=== PATIENT | female | born 1955 | race Caucasian/White ===

== ENCOUNTER 2022-07-08 22:52 | Emergency (ER) | payer MEDICARE, OTHER, SELFPAY ==
[2022-07-08] VITALS (8 sets, daily range): BP systolic 116–160; BP diastolic 61–78; PULSE 63–65; RESP 12–22; TEMP 36.3; O2SAT 94
--- NOTE | ~2022-07-08 | XR_ITS ---
Portable chest x-ray Comparison: None Clinical History: Syncope Findings: Lungs are clear, without focal consolidation or pleural effusion. Cardiomediastinal silho uette is unremarkable. Bones and soft tissues are unremarkable. Impression: Normal chest. Reviewed, dictated and finalized at location . CONSULTANT Impression: Normal chest.
--- NOTE | ~2022-07-08 | CT_ITS ---
Non-contrast Head CT History: Syncope Technique: Axial non-contrast imaging of the brain was performed. Dose reduction technique was used on this scan by utilizing automated exposure control and iterative reconstruction technique. The dose -length product (DLP) was 605.33 mGy-cm. Findings: There is no evidence of intracranial hemorrhage, mass lesion, or acute infarct. Brain par enchyma appears normal. The ventricles and subarachnoid spaces are normal in size. The calvarium ap pears normal. The visualized paranasal sinuses and mastoid air cells are clear. Impression: No significant abnormality seen. Reviewed, dictated and finalized at location . D IDENTIFICATION SPECIALIST Impression: No significant abnormality seen.
--- NOTE | 2022-07-08 23:00 | ECG_ITS ---
Measurements Intervals [place] Rate: 66 P: 44 OK: 177 QRS: 48 QRSD: 114 T: 94 QT: 472 QTc: 495 Interpretive Statements SINUS RHYTHM INTRAVENTRICULAR CONDUCTION DELAY ST-T WAVE ABNORMALITY IN HIGH LATERAL LEADS- CONSIDER ISCHEMIA BASELINE WANDER- I, II, III, AVR, AVL, AVF PROLONGED QT INTERVAL ABNORMAL ECG NO PREVIOUS ECG AVAILABLE FOR COMPARISON Electronically Signed On 07-09-2022 8:02:11 [employer] by Rk Quintanilla D.O.
--- NOTE | 2022-07-08 23:03 | ED.SYNCOPE ---
HPI - Syncope General Chief Complaint: Syncope Stated Complaint: syncope Time Seen by Provider: 07/08/22 23:00 History of Present Illness HPI narrative: This is a 67-year-old female brought in by EMS after syncopal episode. EMS reports patient was drinking with the family, when she lost consciousness. She denies chest pain or difficulty breathing. Related Data Allergies Allergy/AdvReac Type Severity Reaction Status Date / Time iodine Allergy Unknown Rash Verified 07/08/22 23:06 codeine AdvReac Mild Confusion Verified 07/08/22 23:06 Review of Systems Review of Systems: CONSTITUTIONAL: Denies fever, chills, or sweats. EYES: Denies visual changes, redness, or discharge. ENT: Denies rhinorrhea, congestion, sore throat, or otalgia. CARDIOVASCULAR: Denies chest pain, palpitations, or edema. RESPIRATORY: Denies cough or dyspnea. GASTROINTESTINAL: Denies abdominal pain, nausea, vomiting, or diarrhea. GENITOURINARY: Denies dysuria or hematuria. SKIN: Denies rash or itching. MUSCULOSKELETAL: Denies back pain, joint pain, or myalgia. NEUROLOGIC: Syncope denies headache, numbness, dizziness, or weakness. PSYCHIATRIC: Denies anxiety or depression. [facility] Past Medical History Medical History SK (seborrheic keratosis) Social History Social History (Updated 07/08/22 @ 23:04 by Fuad Hilliard MD) Smoking status: Former smoker Alcohol intake: current Substance use: never Exam Narrative: GENERAL: Well-developed, well-nourished, and in no acute distress. HEAD: Normocephalic, atraumatic. EYES: PERRLA and EOMI. ENT: Nares clear, no rhinorrhea or epistaxis. Mucous membranes moist. Oropharynx without tonsillar hypertrophy exudate or other lesions. NECK: Supple. No adenopathy or masses. No carotid bruits or JVD CHEST: Clear to auscultation. No respiratory distress. No wheezes rales or rhonchi HEART: Regular rate and rhythm. No murmur heard. Normal peripheral pulses. ABDOMEN: Soft, nontender, nondistended, normal active bowel sounds. EXTREMITIES: Normal range of motion. No edema. SKIN: Warm, dry, no rash. NEURO: No focal deficits. Alert and oriented x3. PSYCH: Normal mood and affect. Course Course Emergency Course: 23:00 - EKG not concerning for STEMI though does show an isolated 1 mm elevation in lead III. 00:45 - Repeat EKG is not concerning for new changes. White blood cell count elevated to 11.3. D-dimer 0.63 (age-adjusted is negative). Chemistries demonstrate creatinine elevation to 1.5 (no known baseline). Lactic acid elevated to 4. Troponin negative. Chest x-ray on my review is not concerning for acute cardiopulmonary process. Patient's family members are present at bedside and note patient drank her normal amount of alcohol, though smoked marijuana for the first time this evening. They note during her loss of consciousness, she had rhythmic shaking. They denied head injury. Will obtain a CK. If elevated, will consider seizure. 05:40 - Lactic acid decreased to 2.[address] head negative for acute intracranial process. UA not concerning for urinary tract infection. I suspect the patient's syncope is related to dehydration and illicit substance use. Consulted hospitalist, Dr. Vallejo. Will discharge with primary care and cardiology follow-up. Advised the patient to avoid excess alcohol use and avoid illicit substance use. Discussed return and emergent precautions including signs/symptoms of respiratory distress and ACS. The patient voiced understanding and is comfortable with the plan. All questions answered to her satisfaction. Vital Signs Vital signs: Vital Signs Temperature 97.4 F L 07/08/22 22:56 Pulse Rate 63 07/08/22 22:56 Respiratory Rate 16 07/08/22 22:56 Blood Pressure 160/78 H 07/08/22 22:56 Pulse Oximetry 94 07/08/22 22:56 Oxygen Delivery Room Air 07/08/22 22:56 Temperature 97.4 F L 07/08/22 22:56 Pulse
[2022-07-08] MEDS: SODIUM CHLORIDE 0.9% IV 1,000 ML 999 ML IV CONT (23:29)
[2022-07-08 23:38] LABS: Basophils Absolute Auto 0.1 K/mm3 (0.0-0.1); Basophils Percent Auto 0.5 % (0.2-1.2); Eosinophils Absolute Auto 0.2 K/mm3 (0-0.3); Eosinophils Percent Auto 2.1 % (0-4.4); Hematocrit 38.2 % (37.0-47.0); Hemoglobin 12.7 g/dL (12.0-15.0); Immature Granulocyte Absolute 0.08 K/mm3 (0.00-0.031); Immature Granulocyte Percent A 0.7 % (0-0.5); Lymphocytes Absolute Auto 4.87 K/mm3 (0.9-3.2); Lymphocytes Percent Auto 43.3 % (18.3-44.2); Mean Corpuscular HGB Conc 33.2 g/dl (32-36); Mean Corpuscular Hemoglobin 30.2 pg (26-34); Mean Corpuscular Volume 90.7 fl (80-100); Mean Platelet Volume 10.6 fl (7.4-10.4); Monocytes Absolute Auto 0.7 K/mm3 (0.1-0.6); Monocytes Percent Auto 5.8 % (2.6-8.5); Neutrophils Absolute Auto 5.4 K/mm3 (1.3-6.7); Neutrophils Percent Auto 47.6 % (45.5-73.1); Platelet Count Result 272 k/mm3 (150-375); Red Blood Count 4.21 M/mm3 (4.2-5.4); Red Cell Distribution Width 12.8 % (11.5-14.5); White Blood Count 11.3 K/mm3 (4.5-10.0)
[2022-07-09] VITALS (15 sets, daily range): BP systolic 129–151; BP diastolic 52–68; PULSE 63–83; RESP 13–27; O2SAT 94
[2022-07-09 00:05] LABS: Alanine Aminotransferase 21 U/L (6-35); Albumin Level 4.3 g/dL (3.5-5.1); Alkaline Phosphatase 55 U/L (38-126); Anion Gap 14 mmol/L (8-16); Aspartate Amino Transferase 22 U/L (14-36); Bilirubin,Total 0.4 mg/dL (0.2-1.3); Blood Urea Nitrogen 28 mg/dL (7-17); Calcium 8.9 mg/dL (8.4-10.2); Carbon Dioxide 19 mmol/L (22-30); Chloride 101 mmol/L (98-107); Estimated CRCL calculation 33 ml/min; Estimated Glomerular Filt Rate 35; Glucose 168 mg/dL (65-110); Magnesium 1.6 mg/dL (1.6-2.3); Potassium 3.4 mmol/L (3.4-5.0); Sodium 134 mmol/L (137-145)
[2022-07-09 00:15] LABS: Troponin I < 0.012 ng/mL (0.000-0.034)
[2022-07-09 00:20] LABS: INR 1.1; Prothrombin Time 13.3 Seconds (11.1-14.7)
[2022-07-09 00:29] LABS: D Dimer 0.63 ug/mL (<0.48)
[2022-07-09] MEDS: SODIUM CHLORIDE 0.9% IV 1,000 ML 999 ML IV CONT (01:40)
[2022-07-09 01:45] LABS: Add Urine Microscopic? YES; Appearance Urine Clear (Clear); Bilirubin Urine Negative (Negative); Blood Urine Negative (Negative); Color Urine Yellow (Yellow); Glucose Urine UA 3+ mg/dL (Negative); Ketones Urine Trace mg/dL (Negative); Leukocyte Esterase Ur Negative LEU/UL (Negative); Nitrate Urine Negative (Negative); Protein Urine Negative (Negative); Specific Grav Ur 1.025 (1.001-1.035); Urobilinogen Urine 0.2 mg/dL (<2.0); pH Urine 5.5 (5.0-9.0)
[2022-07-09 01:50] LABS: Mucus Urine Rare /lpf; RBC Urine 0-2 /hpf (0-2); Squamous Epithelial Cell Urine Rare /hpf (Few); WBC Urine 0-3 /hpf
[2022-07-09 02:04] LABS: Creatine Kinase 57 U/L (30-135)
[2022-07-09 02:35] LABS: Reflex Lactic Acid Yes or No Add Lactic
[2022-07-09 02:43] LABS: Lactic Acid Reflex 2.6 mmol/L (0.7-2.0)
== END 2022-07-09 05:47 | disposition home or self-care (01) ==
PROVIDERS: Emergency Provider Preventive Medicine Aerospace Medicine; PCP Family Medicine
DX: R55 Syncope and collapse (principal); E86.0 Dehydration; F10.129 Alcohol abuse with intoxication, unspecified; Y90.9 Presence of alcohol in blood, level not specified; Z87.891 Personal history of nicotine dependence; I45.9 Conduction disorder, unspecified; R94.31 Abnormal electrocardiogram [ECG] [EKG]
CPT/HCPCS: 36415; 70450; 71045; 80053; 81001; 82550; 83605; 83735; 84484; 85025; 85380; 85610; 93005; 96360; 96361; 99284; J7030

== ENCOUNTER → 2023-07-26 11:33 | Outpatient (CLI) | payer MEDICARE, SELFPAY ==
--- NOTE | ~2023-07-26 | US_ITS ---
Renal-Bladder ultrasound Clinical History: Abnormal findings of blood chemistry Technique: Real-time sonographic imaging of the kidneys and urinary bladder was performed. Findings: The right kidney measures 9.4 cm in length and the left kidney measures 11.2 cm. There is n o hydronephrosis or renal calculus identified. Renal cortical echogenicity is within normal limits. T here is renal cortical thinning particularly of the right kidney. No renal mass lesion is identified. The urinary bladder is partially distended at the time of this exam. No intraluminal echoes are ident ified. No abnormal wall thickening is seen. Impression: Somewhat asymmetric atrophy of the right kidney as compared to left. No hydronephrosis. Reviewed, dictated and finalized at location M. E FACTORY SEWER Impression: Somewhat asymmetric atrophy of the right kidney as compared to left. No hydrone phrosis.
== END ==
PROVIDERS: PCP Family Medicine; Visit Provider Internal Medicine Nephrology
DX: R79.89 Other specified abnormal findings of blood chemistry (principal)
CPT/HCPCS: 76775

== ENCOUNTER 2023-11-09 12:33 | Outpatient (CLI) | payer MEDICARE, SELFPAY ==
--- NOTE | ~2023-11-09 | MM_ITS ---
EXAMINATION: MM screening bakari BI w kiko HISTORY: Screening mammogram TECHNIQUE: Craniocaudal and mediolateral oblique 3-D tomosynthesis images were obtained and synthetic 2-D images were generated. CAD analysis was submitted and interpreted. COMPARISON: 05/17/2018 bilateral screening mammogram BREAST PARENCHYMAL COMPOSITION: There are scattered areas of fibroglandular density. FINDINGS: New 3.5 mm partially circumscribed opacity is noted at mid depth in the lower central right breast. Diagnostic right mammograms recommended, as well as targeted ultrasound of this area. Otherwise there is no evidence of suspicious mass, calcification, or architectural distortion to sugg est malignancy in either breast. There has been no other suspicious interval change. IMPRESSION: 1. New 3.5 mm opacity in the lower central right breast 2. Diagnostic right mammogram and right breast ultrasound examination recommended BI-RADS Category 0: Incomplete: Needs additional imaging evaluation. Reviewed, dictated and finalized at location B. IMPRESSION: 1. New 3.5 mm opacity in the lower central right breast 2. Diagnostic right mammogram and right breast ultrasound examination recommend ed BI-RADS Category 0: Incomplete: Needs additional imaging evaluation.
== END 2023-11-09 12:34 ==
LOC: MICIMG 12:36
PROVIDERS: PCP Family Medicine; Visit Provider Family Medicine
DX: Z12.31 Encounter for screening mammogram for malignant neoplasm of breast (principal); R92.8 Other abnormal and inconclusive findings on diagnostic imaging of breast
CPT/HCPCS: 77063; 77067

== ENCOUNTER 2023-12-14 09:38 | Outpatient (CLI) | payer MEDICARE, SELFPAY ==
--- NOTE | ~2023-12-14 | MMUS_ITS ---
EXAMINATION: MM diagnostic bakari RT w kiko, US breast RT complete HISTORY: Follow-up right breast mass TECHNIQUE: Additional 3-D tomosynthesis images of the right breast were performed and synthetic 2-D i mages were generated. CAD analysis was submitted and interpreted. High resolution complete right sammie st ultrasound was performed. COMPARISON: Comparison to multiple prior studies sequentially, with oldest reviewed study dated 11/2015. BREAST PARENCHYMAL COMPOSITION: Not dense: There are scattered areas of fibroglandular density. FINDINGS: MAMMOGRAPHIC FINDINGS: There is a persistent low-density mass in the lower outer quadrant of the right breast, middle third. There are no suspicious calcifications or architectural distortion. ULTRASOUND: Complete US of all 4 quadrants of the right breast and retroareolar region was reviewed. At 7:00, 3 c m from the nipple, there is a small 3 mm cluster of microcysts. This likely corresponds to the mammog raphic finding. At 8:00, 5 cm from the nipple there is a small oval hypoechoic mass with internal chayo rocysts measuring 4 mm, likely benign. No internal vascularity or posterior features. At 11:00, 6 cm from the nipple, there is a 7 mm lipoma located superficially. IMPRESSION: 1. Probable benign findings of the right breast. 2. Recommend 6 month follow-up diagnostic right mammogram and Limited right breast ultrasound BI-RADS category 3, probably benign findings. Reviewed, dictated and finalized at location B. IMPRESSION: 1. Probable benign findings of the right breast. 2. Recommend 6 month follow-up diagnostic right mammogram and Limited right catarina ast ultrasound BI-RADS category 3, probably benign findings.
== END 2023-12-14 09:39 ==
PROVIDERS: PCP Obstetrics & Gynecology Gynecology; Visit Provider Obstetrics & Gynecology Gynecology
DX: R92.8 Other abnormal and inconclusive findings on diagnostic imaging of breast (principal)
CPT/HCPCS: 76641; 77061; 77065; G0279

== ENCOUNTER 2024-07-02 09:14 | Outpatient (CLI) | payer MEDICARE, SELFPAY ==
--- NOTE | ~2024-07-02 | MMUS_ITS ---
EXAMINATION: MM diagnostic bakari RT w kiko, US breast RT limited HISTORY: 6 month follow-up right breast lesions TECHNIQUE: Additional 3-D tomosynthesis images of the right breast were performed and synthetic 2-D i mages were generated. CAD analysis was submitted and interpreted. High resolution limited right breas t ultrasound was performed. COMPARISON: 12/14/2023, 11/09/2023 BREAST PARENCHYMAL COMPOSITION:Not Dense. There are scattered areas of fibroglandular density. FINDINGS: MAMMOGRAPHIC FINDINGS: Parenchymal pattern of the right breast is unchanged. Stable small low-density mass at the lower righ t breast. ULTRASOUND: At the 7:00 position right breast, 3 cm from nipple, there is a 3 mm hypoechoic structure, possibly m ildly complex cyst, similar in appearance to prior exam. Abnormality seen in the prior exam at the 8: 00 position right breast, 5 cm in level, as no longer visualized. IMPRESSION: Stable probable benign minimally complex cyst at the 7:00 position right breast, measuring 3 mm in d iameter. Stable mammographic appearance of the right breast. BI-RADS Category 2: Benign finding(s). Reviewed, dictated and finalized at location M. RNMENT CLERK IMPRESSION: Stable probable benign minimally complex cyst at the 7:00 position right breas t, measuring 3 mm in diameter. Stable mammographic appearance of the right breast. BI-RADS Category 2: Benign finding(s).
== END 2024-07-02 09:15 | disposition home or self-care (01) ==
LOC: MICIMG 09:15
PROVIDERS: PCP Obstetrics & Gynecology Gynecology; Visit Provider Obstetrics & Gynecology Gynecology
DX: R92.8 Other abnormal and inconclusive findings on diagnostic imaging of breast (principal); N60.01 Solitary cyst of right breast; N63.10 Unspecified lump in the right breast, unspecified quadrant
CPT/HCPCS: 76642; 77061; 77065; G0279